=== PATIENT | female | born 1995 | race Caucasian/White ===

== ENCOUNTER → 2016-07-21 | Outpatient (CLI) | payer BC ==
[2016-07-21 11:19] LABS: MEAN CORPUSCULAR HEMOGLOBIN 31.1 pg (27.0-33.0); MEAN CORPUSCULAR HGB CONC 33.9 g/dl (32.0-36.5); MEAN CORPUSCULAR VOLUME 91.6 fl (80.0-96.0); RED CELL DISTRIBUTION WIDTH 12.1 % (11.5-14.5); WHITE BLOOD COUNT 7.6 K/mm3 (4.0-10.0)
[2016-07-21 11:48] LABS: VITAMIN B12 LEVEL 347 PG/ML (247-911)
[2016-07-21 12:02] LABS: ALBUMIN 3.9 GM/DL (3.2-5.2); ALBUMIN/GLOBULIN RATIO 1.08 (1.00-1.93); ALKALINE PHOSPHATASE 55 U/L (45-117); ALT/SGPT 30 U/L (12-78); ANION GAP 8 MEQ/L (8-16); AST/SGOT 16 U/L (15-37); BILIRUBIN,TOTAL 0.5 MG/DL (0.2-1.0); BLOOD UREA NITROGEN 11 MG/DL (7-18); CALCIUM LEVEL 8.5 MG/DL (8.5-10.1); CARBON DIOXIDE LEVEL 27 MEQ/L (21-32); CHLORIDE LEVEL 106 MEQ/L (98-107); CHOLESTEROL LEVEL 181 MG/DL (<200); CREATININE FOR GFR 0.68 MG/DL (0.55-1.02); FERRITIN 16 NG/ML (8-252); GLOMERULAR FILTRATION RATE > 60.0 (>60); GLUCOSE, FASTING 78 MG/DL (70-105); PERCENT SATURATION 31.2 % (13.2-37.4); POTASSIUM SERUM 3.8 MEQ/L (3.5-5.1); SODIUM LEVEL 141 MEQ/L (136-145); TOTAL IRON BINDING CAPACITY 455 UG/DL (250-450); TOTAL PROTEIN 7.5 GM/DL (6.4-8.2); TRIGLYCERIDES LEVEL 94 MG/DL (<150)
== END ==
LOC: M LAB 10:37
PROVIDERS: ATTEND Family Medicine
DX: D64.9 Anemia, unspecified (principal)

== ENCOUNTER → 2016-12-01 | Outpatient (REF) | payer BC | LOC: M LAB REF 10:27 | PROVIDERS: ATTEND Physician Assistant | DX: J02.9 Acute pharyngitis, unspecified (principal) ==

== ENCOUNTER → 2017-12-04 | Outpatient (REF) | payer BC ==
[2017-12-04 20:27] LABS: CONTROL LINE HCG INT CTR LINE PRESENT; HCG, SERUM QUALITATIVE POSITIVE (NEGATIVE)
== END ==
LOC: M LAB REF 19:59
DX: N91.2 Amenorrhea, unspecified (principal)
CPT/HCPCS: 84703

== ENCOUNTER → 2017-12-16 | Outpatient (CLI) | payer MEDICAID, BC | LOC: M RAD 10:31 | DX: Z36.9 Encounter for antenatal screening, unspecified (principal); Z3A.01 Less than 8 weeks gestation of pregnancy | CPT/HCPCS: 76801 ==

== ENCOUNTER → 2018-04-13 | Outpatient (REF) | payer BC, MEDICAID | LOC: M LAB REF 19:23 | PROVIDERS: ATTEND Physician Assistant | DX: N91.2 Amenorrhea, unspecified (principal) ==

== ENCOUNTER → 2018-11-29 | Outpatient (CLI) | payer OTHER ==
[2018-11-29 10:24] LABS: HEMATOCRIT 38.4 % (36.0-47.0); HEMOGLOBIN 12.7 g/dl (12.0-15.5); MEAN CORPUSCULAR HEMOGLOBIN 30.5 pg (27.0-33.0); MEAN CORPUSCULAR HGB CONC 33.1 g/dl (32.0-36.5); MEAN CORPUSCULAR VOLUME 92.1 fl (80.0-96.0); PLATELET COUNT, AUTOMATED 245 10^3/uL (150-450); RED BLOOD COUNT 4.17 10^6/uL (4.00-5.40); WHITE BLOOD COUNT 6.2 10^3/uL (4.0-10.0)
[2018-11-29 11:00] LABS: ALBUMIN 3.6 GM/DL (3.2-5.2); ALT/SGPT 28 U/L (12-78); BILIRUBIN,TOTAL 0.3 MG/DL (0.2-1.0); BLOOD UREA NITROGEN 12 MG/DL (7-18); CARBON DIOXIDE LEVEL 26 MEQ/L (21-32); CHLORIDE LEVEL 110 MEQ/L (98-107); CHOLESTEROL LEVEL 158 MG/DL (<200); CHOLESTEROL RISK RATIO 2.548 (<5); CREATININE FOR GFR 0.62 MG/DL (0.55-1.30); GLOMERULAR FILTRATION RATE > 60.0 (>60); GLUCOSE, FASTING 80 MG/DL (70-100); HDL CHOLESTEROL 62 MG/DL (>40); IRON (FE) 61 UG/DL (50-170); LDL CHOLESTEROL 76 MG/DL (<100); NON-HDL-C 96 MG/DL; PERCENT SATURATION 17.4 % (13.2-45.0); POTASSIUM SERUM 4.1 MEQ/L (3.5-5.1); SODIUM LEVEL 143 MEQ/L (136-145); THYROXINE (T4) 11.4 UG/DL (4.5-12.0); TOTAL 25(OH) VITAMIN D 23.3 NG/ML (30.0-100.0); TOTAL IRON BINDING CAPACITY 351 UG/DL (250-450); TOTAL PROTEIN 7.4 GM/DL (6.4-8.2); TOTAL T3 134.4 NG/DL (60.0-181.0); TRIGLYCERIDES LEVEL 101 MG/DL (<150); VITAMIN B12 LEVEL 585 PG/ML (247-911)
== END ==
LOC: M LAB 09:14
PROVIDERS: ATTEND Family Medicine
DX: D64.9 Anemia, unspecified (principal); R53.83 Other fatigue; E03.9 Hypothyroidism, unspecified

== ENCOUNTER 2019-03-30 13:09 | Emergency (ER) | payer OTHER ==
[~2019-03-30] VITALS: Ht 154.9 cm; Wt 61.5 kg
[2019-03-30] MEDS ORDERED: prenatal PO (13:23)
[2019-03-30] MEDS ORDERED: vitamin d PO (13:23)
[2019-03-30] MEDS ORDERED: FERR325T81 PO (13:23)
--- NOTE | 2019-03-30 13:33 | ECGEPIP ---
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
--- NOTE | 2019-03-30 15:07 | REP ---
CHEST, SINGLE VIEW: There is no evidence of acute infiltrate. No pleural effusion is seen. The heart is normal in size. The mediastinal silhouette is unremarkable. The visualized osseous structures are intact. IMPRESSION: No acute pulmonary disease. Electronically Signed by Amadeo Erwin MD 03/30/2019 03:40 P
[2019-03-30] MEDS ORDERED: LORazepam 2 MG/ML VIAL (J2060) IV STA (15:08)
[2019-03-30 15:11] LABS: BASO % 0.3 % (0.0-1.0); EOS % 0.2 % (0.0-3.0); HEMATOCRIT 40.9 % (36.0-47.0); HEMOGLOBIN 13.9 g/dl (12.0-15.5); LYMPH # 1.1 10^3/uL (1.5-5.0); LYMPH % 10.3 % (24.0-44.0); MEAN CORPUSCULAR HEMOGLOBIN 30.8 pg (27.0-33.0); MEAN CORPUSCULAR VOLUME 90.5 fl (80.0-96.0); MONO # 0.5 10^3/uL (0.0-0.8); MONO % 4.4 % (0.0-5.0); NEUTROPHILS # 9.1 10^3/uL (1.5-8.5); NEUTROPHILS % 84.4 % (36.0-66.0); PLATELET COUNT, AUTOMATED 239 10^3/uL (150-450); RED BLOOD COUNT 4.52 10^6/uL (4.00-5.40); WHITE BLOOD COUNT 10.7 10^3/uL (4.0-10.0)
[2019-03-30] MEDS ORDERED: NS 1,000 ML IV ONE (15:15)
[2019-03-30 15:32] LABS: HCG, SERUM QUALITATIVE NEGATIVE (NEGATIVE)
[2019-03-30 15:36] LABS: BLOOD UREA NITROGEN 8 MG/DL (7-18); CARBON DIOXIDE LEVEL 26 MEQ/L (21-32); CHLORIDE LEVEL 109 MEQ/L (98-107); CK-MB VALUE MASS < 1.0 NG/ML (<3.6); CPK CREATINE PHOSPHOKINASE 66 U/L (26-192); FREE THYROXINE INDEX 4.3 % (1.3-4.8); GLOMERULAR FILTRATION RATE > 60.0 (>60); GLUCOSE, FASTING 97 MG/DL (70-100); MAGNESIUM LEVEL 2.3 MG/DL (1.8-2.4); MB/CK RELATIVE INDEX 1.52 (< OR =4); POTASSIUM SERUM 3.7 MEQ/L (3.5-5.1); SODIUM LEVEL 141 MEQ/L (136-145); T UPTAKE 33 % (30-39); TROPONIN I < 0.02 NG/ML (< 0.10)
[2019-03-30] MEDS ORDERED: METOPROLOL 5 MG/5 ML VIAL IV STA (16:28)
[2019-03-30 18:30] VITALS: BP 126/82
[2019-03-30] MEDS ORDERED: ONDANSETRON 4MG/2ML VIAL (J2405) As Ordered ONE (18:44)
[2019-03-30] MEDS ORDERED: ONDANSETRON 4MG/2ML VIAL (J2405) IV ONE (18:45)
== END 2019-03-30 18:55 | disposition home or self-care (01) ==
LOC: M ED 13:09
DX: I49.9 Cardiac arrhythmia, unspecified (principal); R00.0 Tachycardia, unspecified; R00.2 Palpitations; Z79.899 Other long term (current) drug therapy
CPT/HCPCS: 36415; 71045; 80048; 82550; 82553; 83735; 84436; 84443; 84479; 84484; 84703; 85025; 85379; 93005; 93041; 94760; 96360; 99285; J2060

== ENCOUNTER → 2019-04-10 | Outpatient (CLI) | payer OTHER ==
[~2019-04-10] MED LIST: FERR325T81 PO; prenatal PO; vitamin d PO
--- NOTE | 2019-04-10 10:44 | ECGEPIP ---
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
[2019-04-10 10:55] LABS: HEMATOCRIT 40.7 % (36.0-47.0); HEMOGLOBIN 13.2 g/dl (12.0-15.5); MEAN CORPUSCULAR HEMOGLOBIN 29.9 pg (27.0-33.0); MEAN CORPUSCULAR HGB CONC 32.4 g/dl (32.0-36.5); MEAN CORPUSCULAR VOLUME 92.3 fl (80.0-96.0); PLATELET COUNT, AUTOMATED 209 10^3/uL (150-450); RED BLOOD COUNT 4.41 10^6/uL (4.00-5.40); WHITE BLOOD COUNT 5.8 10^3/uL (4.0-10.0)
[2019-04-10 11:42] LABS: ALBUMIN 4.2 GM/DL (3.2-5.2); ALT/SGPT 24 U/L (12-78); BILIRUBIN,TOTAL 0.5 MG/DL (0.2-1.0); BLOOD UREA NITROGEN 11 MG/DL (7-18); CALCIUM LEVEL 9.1 MG/DL (8.5-10.1); CARBON DIOXIDE LEVEL 29 MEQ/L (21-32); CHLORIDE LEVEL 108 MEQ/L (98-107); CHOLESTEROL LEVEL 158 MG/DL (<200); CHOLESTEROL RISK RATIO 2.872 (<5); CREATININE FOR GFR 0.61 MG/DL (0.55-1.30); GLOMERULAR FILTRATION RATE > 60.0 (>60); GLUCOSE, FASTING 82 MG/DL (70-100); HDL CHOLESTEROL 55 MG/DL (>40); IRON (FE) 100 UG/DL (50-170); LDL CHOLESTEROL 84 MG/DL (<100); NON-HDL-C 103 MG/DL; PERCENT SATURATION 30.5 % (13.2-45.0); POTASSIUM SERUM 4.3 MEQ/L (3.5-5.1); SODIUM LEVEL 141 MEQ/L (136-145); TOTAL 25(OH) VITAMIN D 46.1 NG/ML (30.0-100.0); TOTAL IRON BINDING CAPACITY 328 UG/DL (250-450); TOTAL PROTEIN 7.4 GM/DL (6.4-8.2); TRIGLYCERIDES LEVEL 95 MG/DL (<150)
== END ==
LOC: M LAB 09:41
PROVIDERS: ATTEND Family Medicine
DX: D64.9 Anemia, unspecified (principal); R53.83 Other fatigue; R00.2 Palpitations

== ENCOUNTER → 2019-08-11 | Outpatient (CLI) | payer OTHER ==
[2019-08-11 10:18] LABS: HEMOGLOBIN A1c 4.5 %
[2019-08-11 10:34] LABS: THYROID STIMULATING HORMONE 1.05 uIU/ML (0.358-3.740)
[2019-08-13 11:33] LABS: LUTEINIZING HORMONE 5.5 mIU/mL; PROLACTIN 9.7 NG/ML
[2019-08-13 11:34] LABS: ESTRADIOL 85.4 PG/ML
[2019-08-13 11:35] LABS: FOLLICLE STIMULATING HORMONE 6.9 mIU/mL
[2019-08-17 17:07] LABS: ANTI MULLERIAN HORMONE 3.09 ng/mL (.); TESTOSTERONE FREE (DIRECT) 1.2 pg/mL (0.0-4.2)
== END ==
LOC: M LAB 09:18
PROVIDERS: ATTEND Obstetrics & Gynecology
DX: N97.9 Female infertility, unspecified (principal)

== ENCOUNTER → 2019-08-15 | Outpatient (CLI) | payer OTHER ==
--- NOTE | 2019-08-15 11:02 | REP ---
Clinical: Infertility. History of leiomyoma. Technique: Transabdominal pelvic ultrasound followed by transvaginal examination for better evaluation of the endometrium and adnexa with color Doppler evaluation of the ovaries. Findings: Normal anteverted uterus measures 7.3 x 3.2 x 4.3 cm. Endometrial complex demonstrates normal trilaminar appearance and measures 5 mm. No discrete uterine or endometrial abnormality identified. The bilateral ovaries are normal in appearance and vascularity without torsion. Right ovary measures 2.8 x 1.5 x 3.1 cm (RI 0.47). Left ovary measures 2.4 x 1.3 x 2.4 cm (RI 0.49). No pelvic fluid or adnexal mass lesion. Impression: Normal pelvic ultrasound.
== END ==
LOC: M WHC 09:08
PROVIDERS: ATTEND Obstetrics & Gynecology
DX: N97.9 Female infertility, unspecified (principal)

== ENCOUNTER → 2019-08-16 | Outpatient (CLI) | payer OTHER ==
[~2019-08-16] MED LIST changes: +ISOVUE-370 76% 100ML VIAL As Ordered ONE
--- NOTE | 2019-08-16 15:12 | REP ---
HYSTEROSALPINGOGRAM: Four views. HISTORY: Infertility. PROCEDURE: The injection procedure is performed by the referring hot walker. Fluoroscopic monitoring and intermittent spot films were obtained. Fluoroscopy time is 0.3 minutes. FINDINGS: The uterus is tipped to the left. Endometrial cavity is smooth and without filling defects or irregularities. The isthmic and ampullary segments of the fallopian tubes filled readily and symmetrically. Bilateral prompt peritoneal spillage is documented. Ampullary segments are unremarkable. There is no evidence of hydrosalpinx or other abnormality. IMPRESSION: Normal hysterosalpingogram. Bilateral tubal patency is documented. Electronically Signed by Solis Gage MD 08/16/2019 05:05 P
== END ==
LOC: M RADPRO 12:46
PROVIDERS: ATTEND Obstetrics & Gynecology
DX: N97.9 Female infertility, unspecified (principal)
CPT/HCPCS: 58340; 74740; Q9967

== ENCOUNTER → 2020-01-31 | Outpatient (CLI) | payer OTHER ==
[~2020-01-31] MED LIST changes: -ISOVUE-370 76% 100ML VIAL As Ordered ONE
== END ==
LOC: M LABSMTC 13:45
PROVIDERS: ATTEND Family Medicine
DX: Z20.828 Contact with and (suspected) exposure to other viral communicable diseases (principal)

== ENCOUNTER → 2020-06-08 | Outpatient (REF) | payer OTHER ==
[2020-06-08 14:24] LABS: HCG, SERUM QUANTITATIVE 2 MIU/ML
[2020-06-08 14:45] LABS: HCG, SERUM QUALITATIVE NEGATIVE (NEGATIVE)
== END ==
LOC: M LAB 13:57
PROVIDERS: ATTEND Physician Assistant Medical
DX: N91.2 Amenorrhea, unspecified (principal)

== ENCOUNTER → 2020-06-14 | Outpatient (REF) | payer OTHER ==
[~2020-06-14] MED LIST changes: +NITR100C2
[2020-06-14 19:19] LABS: APPEARANCE, URINE HAZY (CLEAR); BACTERIA, URINE AUTO 2+ (NEGATIVE); BILIRUBIN, URINE AUTO NEGATIVE (NEGATIVE); BLOOD, URINE BLOOD 2+ (NEGATIVE); COLOR, URINE YELLOW (YELLOW); GLUCOSE, URINE (UA) AUTO NEGATIVE (NEGATIVE); KETONE, URINE AUTO NEGATIVE (NEGATIVE); LEUKOCYTE ESTERASE, URINE AUTO 2+ (NEGATIVE); MUCUS, URINE SMALL (NEGATIVE); NITRITE, URINE AUTO POSITIVE (NEGATIVE); PROTEIN, URINE AUTO NEGATIVE (NEGATIVE); RBC, URINE AUTO 114 /HPF (0-3); SPECIFIC GRAVITY URINE AUTO 1.014 (1.002-1.035); SQUAMOUS EPITHELIAL CELL UR AU 0 /HPF (0-6); TRANSITIONAL EPITHELIAL AUTO <1 /HPF; UROBILINOGEN, URINE AUTO 0.2 mg/dL (0.0-2.0); WBC, URINE AUTO 32 /HPF (0-3)
== END ==
LOC: M LAB REF 18:26
PROVIDERS: ATTEND Physician Assistant Medical
DX: N39.0 Urinary tract infection, site not specified (principal)

== ENCOUNTER 2020-06-15 13:46 | Emergency (ER) | payer OTHER ==
[~2020-06-15] VITALS: Ht 154.9 cm; Wt 56.8 kg
[~2020-06-15 13:46] MED LIST changes: -NITR100C2
[2020-06-15 13:58] VITALS: BP 159/92
[2020-06-15] MEDS ORDERED: NITR100C2 (14:01)
== END 2020-06-15 15:00 | disposition left against medical advice (07) ==
LOC: M ED 13:46
DX: Z53.21 Procedure and treatment not carried out due to patient leaving prior to being seen by health care provider (principal)

== ENCOUNTER → 2020-06-16 | Outpatient (CLI) | payer OTHER ==
[~2020-06-16] MED LIST changes: +NITR100C2
[2020-06-16 10:07] LABS: HEMATOCRIT 39.5 % (36.0-47.0); HEMOGLOBIN 13.2 g/dl (12.0-15.5); MEAN CORPUSCULAR HEMOGLOBIN 31.5 pg (27.0-33.0); MEAN CORPUSCULAR HGB CONC 33.4 g/dl (32.0-36.5); MEAN CORPUSCULAR VOLUME 94.3 fl (80.0-96.0); PLATELET COUNT, AUTOMATED 236 10^3/uL (150-450); RED BLOOD COUNT 4.19 10^6/uL (4.00-5.40); WHITE BLOOD COUNT 6.7 10^3/uL (4.0-10.0)
[2020-06-16 10:59] LABS: HCG, SERUM QUANTITATIVE 408 MIU/ML
[2020-06-16 16:14] LABS: HEPATITIS C VIRUS ABY INDEX 0.1 INDEX (<0.8); HIV 1&2 SCREEN CENTAUR NEGATIVE (NEGATIVE)
== END ==
LOC: M LAB 08:44
PROVIDERS: ATTEND Obstetrics & Gynecology
DX: Z34.91 Encounter for supervision of normal pregnancy, unspecified, first trimester (principal); Z3A.00 Weeks of gestation of pregnancy not specified

== ENCOUNTER → 2020-10-06 | Outpatient (CLI) | payer OTHER | LOC: M WHC 10:34 | PROVIDERS: ATTEND Obstetrics & Gynecology | DX: Z34.82 Encounter for supervision of other normal pregnancy, second trimester (principal) ==

== ENCOUNTER → 2020-10-06 | Outpatient (CLI) | payer OTHER | LOC: M WHC 14:17 | PROVIDERS: ATTEND Advanced Practice Midwife | DX: Z34.82 Encounter for supervision of other normal pregnancy, second trimester (principal) ==

== ENCOUNTER → 2020-11-04 | Outpatient (CLI) | payer OTHER ==
--- NOTE | 2020-11-04 14:32 | REP ---
INDICATION: F/U ANATOMY. COMPARISON: Comparison study is from October 06, 2020. TECHNIQUE: Transabdominal obstetric sonography. FINDINGS: Scanning through the gravid uterus demonstrates a viable single intrauterine gestation in cephalic lie. motion is observed and heart rate is recorded at 104 beats per minute. A anterior placenta is seen, grade 1, without evidence of placenta previa. Closed cervical length is measured at 3.3 cm transabdominally. No extrauterine abnormality is observed. Amniotic fluid is subjectively normal. Four-chamber heart, right and left ventricular outflow tract, and abdominal wall cord insertion were visualized today and are felt to be normal. In conjunction with the prior study, anatomic survey is felt to be complete. Biometry chart: BPD 6.0 cm, 24 weeks 2 days Head circumference 22.3 cm, 24 weeks 2 days Abdominal circumference 19.7 cm, 24 weeks 3 days Femur length 4.3 cm, 24 weeks 0 days Humeral length 4.0 cm, 24 weeks 2 days HC AC ratio normal 1.13 Cephalic index normal 0.74 Estimated weight 674 g, 1 lb 7 oz, 38th percentile for 24 weeks 2 days IMPRESSION: Viable single intrauterine gestation at 24 weeks 2 days by today's composite sonographic criteria. ROBERTH by today's sonography February 22, 2021. No complication identified. Expected gestational age estimate based on known ROBERTH of 02/22/2021 is 24 weeks 2 days. anatomic survey is felt to be complete <Electronically signed by Gonzalez Gage > 11/04/20 [id number]
== END ==
LOC: M WHC 12:58
PROVIDERS: ATTEND Obstetrics & Gynecology
DX: Z34.82 Encounter for supervision of other normal pregnancy, second trimester (principal); Z3A.24 24 weeks gestation of pregnancy

== ENCOUNTER → 2020-11-04 | Outpatient (CLI) | payer OTHER ==
[2020-11-04 15:20] LABS: HEMATOCRIT 32.8 % (36.0-47.0); HEMOGLOBIN 10.9 g/dl (12.0-15.5); MEAN CORPUSCULAR HGB CONC 33.2 g/dl (32.0-36.5); MEAN CORPUSCULAR VOLUME 93.2 fl (80.0-96.0); PLATELET COUNT, AUTOMATED 196 10^3/uL (150-450); RED BLOOD COUNT 3.52 10^6/uL (4.00-5.40); WHITE BLOOD COUNT 7.5 10^3/uL (4.0-10.0)
== END ==
LOC: M PLALAB 13:02
PROVIDERS: ATTEND Obstetrics & Gynecology
DX: Z34.92 Encounter for supervision of normal pregnancy, unspecified, second trimester (principal); Z3A.00 Weeks of gestation of pregnancy not specified

== ENCOUNTER → 2021-01-26 | Outpatient (REF) | payer OTHER | LOC: M SFHCWAGY 16:59 | PROVIDERS: ATTEND Obstetrics & Gynecology | DX: Z34.83 Encounter for supervision of other normal pregnancy, third trimester (principal) ==

== ENCOUNTER 2021-02-25 03:26 | Inpatient (IN) | payer OTHER ==
[~2021-02-25] VITALS: Ht 154.9 cm; Wt 73.0 kg
[2021-02-25] VITALS (36 sets, daily range): BP systolic 92–136; BP diastolic 52–89
[2021-02-25 05:09] LABS: HEMATOCRIT 39.9 % (36.0-47.0); HEMOGLOBIN 13.3 g/dl (12.0-15.5); MEAN CORPUSCULAR HEMOGLOBIN 30.6 pg (27.0-33.0); MEAN CORPUSCULAR HGB CONC 33.3 g/dl (32.0-36.5); MEAN CORPUSCULAR VOLUME 91.7 fl (80.0-96.0); PLATELET COUNT, AUTOMATED 142 10^3/uL (150-450); RED BLOOD COUNT 4.35 10^6/uL (4.00-5.40); WHITE BLOOD COUNT 7.1 10^3/uL (4.0-10.0)
[2021-02-25] MEDS ORDERED: LACTATED RINGER'S 1000 ML IV ONE (08:35)
[2021-02-25] MEDS ORDERED: OXYTOCIN DRIP 30 UNITS in IV 1 EA IV SCH ×2 (08:35→23:15)
[2021-02-25] MEDS: LR 1,000 ML IV SCH ×3 (09:39→18:23)
[2021-02-25] MEDS ORDERED: FENTANYL 2MCG/ML ROPIVACAINE 0.2% IN 0.9% NACL 100ML IVBAG As Ordered ONE (12:00)
[2021-02-25] MEDS ORDERED: FENTANYL/ROPIVACAINE/NACL BAG 100 ML EPIDURAL SCH (12:25)
[2021-02-25] MEDS ORDERED: REFRIGERATOR IV KEYS XX PRN (12:25)
[2021-02-25] MEDS ORDERED: EPIDURAL COMMENT XX SCH (12:25)
[2021-02-25] MEDS ORDERED: LACTATED RINGER'S 1000 ML IV PRN (12:25)
[2021-02-25] MEDS ORDERED: diphenhydrAMINE 50MG/ML VIAL (J1200) IV PRN (12:25)
[2021-02-25] MEDS ORDERED: ONDANSETRON 4MG/2ML VIAL IV PRN (12:25)
[2021-02-25] MEDS ORDERED: ePHEDrine SULFATE 25 MG/5 ML(5MG/ML) SYRINGE IV PRN (12:25)
[2021-02-25] MEDS ORDERED: NALOXONE INJ 0.4MG/1ML VIAL (J2310 PER 1MG) IV PRN (12:25)
[2021-02-25] MEDS ORDERED: EPIDURAL/PCA KEYS XX PRN (12:25)
[2021-02-25] MEDS ORDERED: ACETAMINOPHEN 500 MG TAB PO ONE (18:40)
[2021-02-25] MEDS ORDERED: FAMOTIDINE 20 MG TAB PO ONE (20:25)
[2021-02-25 23:02] LABS: CORD GAS ABE V -3.6; CORD GAS HCO3 V 21.9 MEQ/L; CORD GAS O2 SAT V 54.3 %; CORD GAS PCO2 V 41.2 mmHg; CORD GAS PH V 7.344 UNITS; CORD GAS PO2 V 22.3 mmHg; CORD GAS SBC V 20.5 MEQ/L; CORD GAS TCO2 V 23.2 MEQ/L
[2021-02-25 23:04] LABS: CORD GAS ABE A -3.1; CORD GAS HCO3 A 25.5 MEQ/L; CORD GAS O2 SAT A 17.6 %; CORD GAS PCO2 A 59.8 mmHg; CORD GAS PH A 7.248 UNITS; CORD GAS SBC A 19.9 MEQ/L; CORD GAS TCO2 A 27.4 MEQ/L
[2021-02-25] MEDS ORDERED: ACETAMINOPHEN TAB 650MG DOSE (2X325MG) PO PRN (23:15)
[2021-02-25] MEDS ORDERED: METHYLERGONOVINE MALEATE 0.2 MG TAB PO PRN (23:15)
[2021-02-25] MEDS ORDERED: IBUPROFEN 600MG TAB PO PRN (23:15)
[2021-02-25] MEDS ORDERED: DIBUCAINE 1% OINTMENT 30GM TOP PRN (23:15)
[2021-02-25] MEDS ORDERED: RHOGAM 300 MCG (1500 IU) INJ (J2790) IM SCH (23:15)
[2021-02-25] MEDS ORDERED: MEASLES,MUMPS,RUBELLA VACCINE INJ (MMR-II) (90707) SC SCH (23:15)
[2021-02-26 06:38] VITALS: BP 114/61
[2021-02-26 09:24] VITALS: BP 114/61
[2021-02-26] MEDS: PRENATAL VITAMINS CHEWABLE TABLET PO SCH (10:40)
[2021-02-26] MEDS: IBUPROFEN 800 MG TAB PO PRN ×2 (14:01→22:10)
[2021-02-26] MEDS: DOCUSATE SODIUM 100MG CAPSULE PO PRN (16:53)
[2021-02-26] MEDS: ACETAMINOPHEN 500 MG TAB PO PRN (16:55)
[2021-02-26 17:55] VITALS: BP 116/66
[2021-02-26] MEDS ORDERED: OMEPRAZOLE 20 MG CAP PO SCH (18:00)
[2021-02-27 05:48] VITALS: BP 99/58
[2021-02-27] MEDS: IBUPROFEN 800 MG TAB PO PRN ×2 (06:30→14:44)
[2021-02-27] MEDS ORDERED: OMEPRAZOLE 20 MG CAP PO SCH (09:00)
[2021-02-27] MEDS: PRENATAL VITAMINS CHEWABLE TABLET PO SCH (09:13)
[2021-02-27] MEDS: DOCUSATE SODIUM 100MG CAPSULE PO PRN (09:13)
[2021-02-27] MEDS: ACETAMINOPHEN 500 MG TAB PO PRN (09:15)
[2021-02-27] MEDS ORDERED: SIMETHICONE 80MG CHEW TAB PO PRN (09:20)
== END 2021-02-27 15:00 | disposition home or self-care (01) | DRG 807 ==
LOC: M LDO 03:26 → M LDI 04:08 → M OBS 02-26 02:58
PROVIDERS: ADMIT Specialist; ATTEND Specialist
PROC: 10E0XZZ Delivery of Products of Conception, External Approach (ICD-10-PCS; principal; 2021-02-25)
DX: O42.02 Full-term premature rupture of membranes, onset of labor within 24 hours of rupture (principal); Z37.0 Single live birth; Z3A.40 40 weeks gestation of pregnancy; O48.0 Post-term pregnancy

== ENCOUNTER → 2021-07-21 | Outpatient (REF) | payer MEDICAID, OTHER | LOC: M SFHCWAGY 17:14 | PROVIDERS: ATTEND Obstetrics & Gynecology | DX: Z01.419 Encounter for gynecological examination (general) (routine) without abnormal findings (principal) ==

== ENCOUNTER → 2022-05-04 | Outpatient (CLI) | payer OTHER ==
[2022-05-04 10:34] LABS: HEMATOCRIT 39.9 % (36.0-47.0); HEMOGLOBIN 13.3 g/dl (12.0-15.5); MEAN CORPUSCULAR HEMOGLOBIN 30.7 pg (27.0-33.0); MEAN CORPUSCULAR HGB CONC 33.3 g/dl (32.0-36.5); MEAN CORPUSCULAR VOLUME 92.1 fl (80.0-96.0); PLATELET COUNT, AUTOMATED 240 10^3/uL (150-450); RED BLOOD COUNT 4.33 10^6/uL (4.00-5.40); WHITE BLOOD COUNT 4.9 10^3/uL (4.0-10.0)
[2022-05-04 10:53] LABS: HEMOGLOBIN A1c 4.6 % (4.0-6.0)
[2022-05-04 10:58] LABS: ALBUMIN 4.1 G/DL (3.2-5.2); ALKALINE PHOSPHATASE 56 U/L (46-116); ALT/SGPT 39 U/L (7.0-40); AST/SGOT 20 U/L (<34); BILIRUBIN,TOTAL 0.7 MG/DL (0.3-1.2); BLOOD UREA NITROGEN 15 MG/DL (9-23); CARBON DIOXIDE LEVEL 28 MMOL/L (20-31); CHLORIDE LEVEL 105 MMOL/L (98-107); CHOLESTEROL LEVEL 175 MG/DL (<200); CREATININE FOR GFR 0.63 MG/DL (0.55-1.30); GLOMERULAR FILTRATION RATE > 60.0 (>60); GLUCOSE, FASTING 86 MG/DL (60-100); HDL CHOLESTEROL 52.9 MG/DL (>40); IRON (FE) 88 UG/DL (50-170); LDL CHOLESTEROL 99.7 MG/DL (<100); NON-HDL-C 122 MG/DL; PERCENT SATURATION 26.5 % (13.2-45.0); SODIUM LEVEL 139 MMOL/L (136-145); TOTAL IRON BINDING CAPACITY 332 UG/DL (250-425); TOTAL PROTEIN 7.2 G/DL (5.7-8.2); TRIGLYCERIDES LEVEL 112 MG/DL (<150)
[2022-05-04 11:00] LABS: FREE T4 1.32 NG/DL (0.89-1.76); THYROID STIMULATING HORMONE 0.895 uIU/ML (0.55-4.78); TOTAL T3 115.8 NG/DL (60.0-181.0)
== END ==
LOC: M LAB 09:16
PROVIDERS: ATTEND Family Medicine
DX: I10 Essential (primary) hypertension (principal)

== ENCOUNTER → 2022-10-06 | Outpatient (CLI) | payer OTHER ==
[2022-10-06 09:00] LABS: TOTAL 25(OH) VITAMIN D 43.9 NG/ML (20.0-100.0)
== END ==
LOC: M LAB 07:51
PROVIDERS: ATTEND Family Medicine
DX: R53.83 Other fatigue (principal); D64.9 Anemia, unspecified

== ENCOUNTER → 2022-12-13 | Outpatient (CLI) | payer OTHER, MEDICAID | LOC: M PLALAB 13:24 | PROVIDERS: ATTEND Advanced Practice Midwife | DX: Z84.89 Family history of other specified conditions (principal); Z84.81 Family history of carrier of genetic disease ==

== ENCOUNTER → 2023-05-12 | Outpatient (CLI) | payer OTHER ==
[2023-05-12 09:20] LABS: HEMATOCRIT 42.2 % (36.0-47.0); HEMOGLOBIN 13.9 g/dl (12.0-15.5); MEAN CORPUSCULAR HEMOGLOBIN 30.5 pg (27.0-33.0); MEAN CORPUSCULAR HGB CONC 32.9 g/dl (32.0-36.5); MEAN CORPUSCULAR VOLUME 92.7 fl (80.0-96.0); PLATELET COUNT, AUTOMATED 219 10^3/uL (150-450); RED BLOOD COUNT 4.55 10^6/uL (4.00-5.40)
[2023-05-12 09:33] LABS: HEMOGLOBIN A1c 4.6 % (4.0-6.0)
[2023-05-12 09:56] LABS: TOTAL IRON BINDING CAPACITY 328 UG/DL (250-425)
[2023-05-12 09:57] LABS: IRON (FE) 75 UG/DL (50-170); PERCENT SATURATION 22.9 % (13.2-45.0); THYROID STIMULATING HORMONE 1.733 uIU/ML (0.55-4.78)
[2023-05-12 09:58] LABS: ALBUMIN 4.3 G/DL (3.2-5.2); ALKALINE PHOSPHATASE 65 U/L (46-116); ALT/SGPT 13 U/L (7.0-40); AST/SGOT 11 U/L (<34); BILIRUBIN,TOTAL 0.8 MG/DL (0.3-1.2); BLOOD UREA NITROGEN 10 MG/DL (9-23); CALCIUM LEVEL 9.5 MG/DL (8.5-10.1); CARBON DIOXIDE LEVEL 30 MMOL/L (20-31); CHLORIDE LEVEL 107 MMOL/L (98-107); CHOLESTEROL LEVEL 172 MG/DL (<200); CHOLESTEROL RISK RATIO 3.25 (<5); CREATININE FOR GFR 0.68 MG/DL (0.55-1.30); GLOMERULAR FILTRATION RATE > 60.0 (>60); GLUCOSE, FASTING 88 MG/DL (60-100); HDL CHOLESTEROL 52.9 MG/DL (>40); LDL CHOLESTEROL 96.3 MG/DL (<100); NON-HDL-C 119.1 MG/DL; POTASSIUM SERUM 4.1 MMOL/L (3.5-5.1); SODIUM LEVEL 141 MMOL/L (136-145); TOTAL 25(OH) VITAMIN D 23.4 NG/ML (20.0-100.0); TOTAL PROTEIN 7.3 G/DL (5.7-8.2); TRIGLYCERIDES LEVEL 114 MG/DL (<150); VITAMIN B12 LEVEL 635 PG/ML (211-911)
== END ==
LOC: M LAB 08:48
PROVIDERS: ATTEND Family Medicine
DX: R53.83 Other fatigue (principal); D64.9 Anemia, unspecified; E03.9 Hypothyroidism, unspecified

== ENCOUNTER → 2023-12-26 | Outpatient (CLI) | payer OTHER ==
[2023-12-26 11:07] LABS: HEMOGLOBIN 13.3 g/dl (12.0-15.5); MEAN CORPUSCULAR HEMOGLOBIN 30.2 pg (27.0-33.0); MEAN CORPUSCULAR HGB CONC 33.3 g/dl (32.0-36.5); MEAN CORPUSCULAR VOLUME 90.9 fl (80.0-96.0); PLATELET COUNT, AUTOMATED 209 10^3/uL (150-450); WHITE BLOOD COUNT 5.1 10^3/uL (4.0-10.0)
[2023-12-26 11:32] LABS: AMYLASE 129 U/L (30-118)
[2023-12-26 11:33] LABS: ALKALINE PHOSPHATASE 56 U/L (35-104); ALT/SGPT 12 U/L (7.0-40); AST/SGOT < 8 U/L (<34); BILIRUBIN,TOTAL 0.6 MG/DL (0.3-1.2); BLOOD UREA NITROGEN 12 MG/DL (9-23); CALCIUM LEVEL 9.4 MG/DL (8.5-10.1); CARBON DIOXIDE LEVEL 28 MMOL/L (20-31); CHLORIDE LEVEL 107 MMOL/L (98-107); CHOLESTEROL LEVEL 171 MG/DL (<200); CHOLESTEROL RISK RATIO 2.93 (<5); CREATININE FOR GFR 0.59 MG/DL (0.55-1.30); GLOMERULAR FILTRATION RATE > 60.0 (>60); GLUCOSE, FASTING 87 MG/DL (60-100); HDL CHOLESTEROL 58.2 MG/DL (>40); LDL CHOLESTEROL 97.4 MG/DL (<100); NON-HDL-C 112.8 MG/DL; POTASSIUM SERUM 3.8 MMOL/L (3.5-5.1); SODIUM LEVEL 139 MMOL/L (136-145); TOTAL PROTEIN 7.2 G/DL (5.7-8.2); TRIGLYCERIDES LEVEL 77 MG/DL (<150)
[2023-12-26 11:35] LABS: THYROID STIMULATING HORMONE 1.789 uIU/ML (0.55-4.78); TOTAL 25(OH) VITAMIN D 31.7 NG/ML (20.0-100.0)
[2023-12-26 11:51] LABS: HEMOGLOBIN A1c 4.5 % (4.0-6.0)
== END ==
LOC: M LAB 10:26
PROVIDERS: ATTEND Family Medicine
DX: D64.9 Anemia, unspecified (principal); E03.9 Hypothyroidism, unspecified; R10.9 Unspecified abdominal pain

== ENCOUNTER → 2023-12-28 | Outpatient (CLI) | payer OTHER | LOC: M RAD 08:49 | PROVIDERS: ATTEND Family Medicine | DX: R10.9 Unspecified abdominal pain (principal) ==

== ENCOUNTER → 2024-03-30 | Outpatient (CLI) | payer OTHER | LOC: M RAD 09:01 | PROVIDERS: ATTEND Family Medicine | DX: R09.1 Pleurisy (principal); R07.89 Other chest pain ==

== ENCOUNTER → 2024-06-01 | Outpatient (CLI) | payer OTHER ==
[2024-06-01 13:31] LABS: HEMATOCRIT 38.2 % (36.0-47.0); HEMOGLOBIN 12.9 g/dl (12.0-15.5); MEAN CORPUSCULAR HEMOGLOBIN 31.2 pg (27.0-33.0); MEAN CORPUSCULAR HGB CONC 33.8 g/dl (32.0-36.5); MEAN CORPUSCULAR VOLUME 92.3 fl (80.0-96.0); PLATELET COUNT, AUTOMATED 202 10^3/uL (150-450); RED BLOOD COUNT 4.14 10^6/uL (4.00-5.40); WHITE BLOOD COUNT 7.8 10^3/uL (4.0-10.0)
[2024-06-01 14:28] LABS: HIV 1&2 SCREEN NEGATIVE (NEGATIVE)
[2024-06-01 14:36] LABS: HEPATITIS C VIRUS ABY INDEX 0.03 INDEX (<0.8)
[2024-06-01 15:20] LABS: GC DNA AMPLIFICATION NEGATIVE (NEGATIVE)
== END ==
LOC: M PLALAB 11:06
PROVIDERS: ATTEND Advanced Practice Midwife
DX: Z34.81 Encounter for supervision of other normal pregnancy, first trimester (principal)

== ENCOUNTER → 2024-09-07 | Outpatient (CLI) | payer OTHER | LOC: M WHC 08:55 | PROVIDERS: ATTEND Nurse Practitioner Family | DX: Z34.80 Encounter for supervision of other normal pregnancy, unspecified trimester (principal) ==

== ENCOUNTER → 2024-09-19 | Outpatient (CLI) | payer OTHER ==
[2024-09-19 13:40] LABS: PLATELET COUNT, AUTOMATED 170 10^3/uL (150-450)
[2024-09-19 13:48] LABS: GLUCOSE CHALLENGE TEST 1 HOUR 130 MG/DL (LESS THAN 140)
[2024-09-19 14:24] LABS: HIV 1&2 SCREEN NEGATIVE (NEGATIVE)
[2024-09-19 14:32] LABS: HEPATITIS C VIRUS ABY INDEX < 0.02 INDEX (<0.8)
[2024-09-19 15:19] LABS: Trichomonas vaginalis (AMP) NOT DETECTED (NEGATIVE)
[2024-09-19 15:42] LABS: GC DNA AMPLIFICATION NEGATIVE (NEGATIVE)
== END ==
LOC: M PLALAB 08:32
PROVIDERS: ATTEND Nurse Practitioner Family
DX: Z34.80 Encounter for supervision of other normal pregnancy, unspecified trimester (principal)

== ENCOUNTER → 2024-11-21 | Outpatient (REF) | payer OTHER, MEDICAID ==
[~2024-11-21] MED LIST changes: +PRENTAB9 PO
== END ==
LOC: M SFHCWAGY 12:47
PROVIDERS: ATTEND Obstetrics & Gynecology
DX: Z3A.36 36 weeks gestation of pregnancy (principal)

== ENCOUNTER 2024-12-26 11:41 | Inpatient (IN) | payer MEDICAID, OTHER ==
[2024-12-26] VITALS (21 sets, daily range): BP systolic 94–156; BP diastolic 56–121; O2SAT 98
[~2024-12-26] VITALS: Ht 154.9 cm; Wt 64.7 kg
[~2024-12-26 11:41] MED LIST changes: -PRENTAB9 PO
[2024-12-26] MEDS ORDERED: OXYTOCIN DRIP 30 UNITS in IV 1 EA IV PRN (11:55)
[2024-12-26] MEDS ORDERED: METHYLERGONOVINE MALEATE 0.2 MG/ML 1 ML VIAL IM PRN (11:55)
[2024-12-26] MEDS ORDERED: CARBOPROST TROMETHAMINE 250 MCG/ML AMP IM PRN (11:55)
[2024-12-26] MEDS ORDERED: OXYTOCIN INJ 10UNITS/ML 1ML VIAL IM PRN (11:55)
[2024-12-26] MEDS ORDERED: HOME MED LIST COMPLETE! XX SCH (12:00)
[2024-12-26] MEDS: miSOPROStol 50 MCG 1/2 TABLET PO SCH (12:43)
[2024-12-26 12:57] LABS: PLATELET COUNT, AUTOMATED 137 10^3/uL (150-450)
[2024-12-26 13:50] LABS: HIV 1&2 SCREEN NEGATIVE (NEGATIVE)
[2024-12-26 13:57] LABS: HEPATITIS C VIRUS ABY INDEX < 0.02 INDEX (<0.8)
[2024-12-26] MEDS: TRANEXAMIC ACID INJection 1,000 MG in NS 100 ML IV PRN (18:43)
[2024-12-26] MEDS: OXYTOCIN DRIP 30 UNITS in IV 1 EA IV PRN (18:43)
[2024-12-26] MEDS: LIDOCAINE 1% MDV 20 ML VIAL INFIL PRN (19:02)
[2024-12-26] MEDS ORDERED: IBUPROFEN 800 MG TAB PO PRN (19:20)
[2024-12-26] MEDS ORDERED: METHYLERGONOVINE MALEATE 0.2 MG TAB PO PRN (19:20)
[2024-12-26] MEDS ORDERED: DIBUCAINE 1% OINTMENT 30 GM TOP PRN (19:20)
[2024-12-26] MEDS ORDERED: ACETAMINOPHEN 325 MG TAB PO PRN (19:20)
[2024-12-26] MEDS ORDERED: RHOGAM 300MCG (1500IU) INJ IM SCH (19:20)
[2024-12-26] MEDS: IBUPROFEN 600 MG TAB PO PRN (19:41)
[2024-12-27 06:00] VITALS: BP 102/56; O2SAT 97
[2024-12-27] MEDS: PRENATAL VITAMINS CHEWABLE TABLET PO SCH (08:46)
[2024-12-27] MEDS: ACETAMINOPHEN 500 MG TAB PO PRN (08:46)
[2024-12-27 17:26] VITALS: BP 107/70; O2SAT 98
[2024-12-28 05:57] VITALS: BP 111/68; O2SAT 98
[2024-12-28] MEDS: DOCUSATE SODIUM 100 MG CAPSULE PO PRN (08:23)
[2024-12-28] MEDS ORDERED: MEASLES,MUMPS,RUBELLA VACCINE INJ (MMR-II) SC.IMMUN ONE (09:00)
[2024-12-28] MEDS ORDERED: PRENTAB9 PO (11:09)
[2024-12-28] MEDS ORDERED: HOME MED LIST COMPLETE! XX SCH (11:10)
== END 2024-12-28 13:35 | disposition home or self-care (01) | DRG 560 ==
LOC: M LDI 11:41 → M OBS 20:25
PROVIDERS: ADMIT Advanced Practice Midwife; ATTEND Advanced Practice Midwife
PROC: 10E0XZZ Delivery of Products of Conception, External Approach (ICD-10-PCS; principal; 2024-12-26)
PROC: 3E0P7GC Introduction of Other Therapeutic Substance into Female Reproductive, Via Natural or Artificial Opening (ICD-10-PCS; 2024-12-26)
DX: O48.0 Post-term pregnancy (principal); O62.3 Precipitate labor; Z3A.41 41 weeks gestation of pregnancy; O69.81X0 Labor and delivery complicated by cord around neck, without compression, not applicable or unspecified; Z37.0 Single live birth

== ENCOUNTER → 2025-02-06 | Outpatient (CLI) | payer OTHER ==
[~2025-02-06] MED LIST changes: +PRENTAB9 PO
[2025-02-06 18:15] LABS: PLATELET COUNT, AUTOMATED 192 10^3/uL (150-450)
[2025-02-06 18:26] LABS: ESTIMATED AVERAGE GLUCOSE 91.0 MG/DL (60-110)
[2025-02-06 18:39] LABS: ALT/SGPT 52 U/L (7.0-40); AST/SGOT 29 U/L (<34); CALCIUM LEVEL 9.5 MG/DL (8.5-10.1); CARBON DIOXIDE LEVEL 30 MMOL/L (20-31); CHLORIDE LEVEL 103 MMOL/L (98-107); CHOLESTEROL LEVEL 218 MG/DL (<200); CHOLESTEROL RISK RATIO 3.41 (<5); CREATININE FOR GFR 0.74 MG/DL (0.55-1.30); GLOMERULAR FILTRATION RATE > 90.0 (>60); LDL CHOLESTEROL 130.0 MG/DL (<100); MAGNESIUM LEVEL 2.2 MG/DL (1.8-2.4); NON-HDL-C 154.2 MG/DL; POTASSIUM SERUM 4.0 MMOL/L (3.5-5.1); SODIUM LEVEL 143 MMOL/L (136-145); TRIGLYCERIDES LEVEL 121 MG/DL (<150)
[2025-02-06 18:42] LABS: TOTAL 25(OH) VITAMIN D 27.6 NG/ML (20.0-100.0)
[2025-02-06 18:45] LABS: FREE T4 1.27 NG/DL (0.89-1.76)
== END ==
LOC: M PLALAB 14:39
PROVIDERS: ATTEND Family Medicine
DX: Z39.2 Encounter for routine postpartum follow-up (principal)

== ENCOUNTER → 2025-02-06 | Outpatient (REF) | payer OTHER | LOC: M SFHCPLAZ 14:26 | PROVIDERS: ATTEND Family Medicine | DX: Z39.2 Encounter for routine postpartum follow-up (principal) ==